=== PATIENT | female | born 1980 | race Caucasian/White ===

== ENCOUNTER 2017-02-13 08:11 | Emergency (ER) | payer OTHER ==
[2017-02-13 09:22] LABS: HEMOGLOBIN 13.3 gm/dl (12.3-15.3); RED BLOOD COUNT 4.24 M/UL (4.00-5.10); WHITE BLOOD COUNT 12.8 K/UL (4.5-11.0)
[2017-02-13 09:31] LABS: BUN/CREATININE RATIO 16 (0-10)
== END 2017-02-13 14:12 ==
LOC: ER1 08:11
PROVIDERS: Emergency Medicine
DX: S22.089A Unspecified fracture of T11-T12 vertebra, initial encounter for closed fracture (principal); S60.211A Contusion of right wrist, initial encounter; S40.022A Contusion of left upper arm, initial encounter; S30.1XXA Contusion of abdominal wall, initial encounter; V89.2XXA Person injured in unspecified motor-vehicle accident, traffic, initial encounter; Y93.89 Activity, other specified; Y92.410 Unspecified street and highway as the place of occurrence of the external cause; Z79.899 Other long term (current) drug therapy
CPT/HCPCS: 70450; 71260; 72125; 72128; 72131; 73060; 73080; 73110; 80048; 85025; 96374; 96375; 96376; 99285; J2270; J2405; J7050; Q9962

== ENCOUNTER 2021-04-19 19:40 | Emergency (ER) | payer OTHER, BC ==
[2021-04-19] MEDS ORDERED: CYCLOBENZAPRINE10 MG PO (22:25)
== END 2021-04-19 22:37 | disposition home or self-care (01) ==
LOC: ER1 19:40
DX: S39.012A Strain of muscle, fascia and tendon of lower back, initial encounter (principal); S20.211A Contusion of right front wall of thorax, initial encounter; S60.811A Abrasion of right wrist, initial encounter; E11.9 Type 2 diabetes mellitus without complications; I10 Essential (primary) hypertension; Z90.49 Acquired absence of other specified parts of digestive tract; V49.40XA Driver injured in collision with unspecified motor vehicles in traffic accident, initial encounter
CPT/HCPCS: 71046; 72100; 73110; 99283

== ENCOUNTER 2021-12-26 14:25 | Emergency (ER) | payer BC ==
[~2021-12-26 14:25] MED LIST: CYCLOBENZAPRINE10 MG PO
[2021-12-26] MEDS ORDERED: AMOX TR-K CLV1 EAC4 PO (21:26)
[2021-12-26] MEDS ORDERED: IBU600 MG PO (21:26)
== END 2021-12-26 21:42 | disposition home or self-care (01) ==
LOC: ER1 14:25
DX: S51.851A Open bite of right forearm, initial encounter (principal); E11.9 Type 2 diabetes mellitus without complications; I10 Essential (primary) hypertension; W54.0XXA Bitten by dog, initial encounter
CPT/HCPCS: 12002; 73090; 99283